=== PATIENT | female | born 1950 | race Caucasian/White ===

== ENCOUNTER → 2018-10-28 | Outpatient (CLI) | payer OTHER ==
--- NOTE | 2018-10-28 11:50 | PCVCIMAG ---
EXAM: RIGHT LOWER EXTREMITY ARTERIAL DUPLEX INDICATION: Peripheral Arterial Disease. Leg pain. FINDINGS: Right Leg: Common femoral artery is patent. 70% stenosis the profunda femoral artery. Occlusion throughout the proximal/mid superficial femoral artery. Popliteal artery is patent. The peroneal artery and posterior tibial arteries are patent. There is occlusion of the mid anterior tibial artery. IMPRESSION: Occlusion throughout the proximal/mid [place] right superficial femoral artery. Occlusion of the mid right anterior tibial artery. LOC:[id number]
== END | disposition home or self-care (01) ==
LOC: PCVCIMAG 11:03
DX: I73.9 Peripheral vascular disease, unspecified (principal); R09.89 Other specified symptoms and signs involving the circulatory and respiratory systems
CPT/HCPCS: 93926

== ENCOUNTER → 2018-11-11 | Outpatient (CLI) | payer OTHER ==
[~2018-11-11] MED LIST: DIAZEPAM 10 MG TABLET. ONE; EPTIFIBATIDE BOLUS 2,000 MCG/ML 10ML VIAL. IV ONE; HEPARIN for SUB-Q USE 5,000 UNIT/ML VIAL. SQ ONE; IODIXANOL 270 MG/ML 100 ML VIAL. ONE; IV NORMAL SALINE 1000ML BAG 1,000 ML ONE; LIDOCAINE 1%/EPI 1:100,000 20 ML VIAL. ONE; MIDAZOLAM HCL/PF 2 MG/2 ML VIAL. ONE; fentaNYL PF VIAL 100 MCG/2 ML VIAL ONE; hydrALAZINE 20 MG/ML VIAL. ONE
--- NOTE | 2018-11-11 17:19 | PCVCINTER ---
EXAM: 1. AORTOGRAM AND RIGHT LOWER EXTREMITY RUNOFF ANGIOGRAM 2. BILATERAL RENAL ANGIOGRAPHY 3. RIGHT SUPERFICIAL FEMORAL ARTERY ATHERECTOMY AND STENT PLACEMENT. 4. SECONDARY THROMBECTOMY RIGHT SUPERFICIAL FEMORAL ARTERY. 5. DRUG COATED BALLOON ANGIOPLASTY RIGHT SUPERFICIAL FEMORAL ARTERY. 6. LEFT COMMON ILIAC ARTERY STENT PLACEMENT. 7. LEFT EXTERNAL ILIAC ARTERY STENT PLACEMENT. INDICATION: Peripheral arterial disease. Coronary artery disease. Nonhealing ulcer right lower extremity. Hypertension. Renal atherosclerosis. Dialysis. No prior catheter based angiographic study is available. A full diagnostic angiogram study is performed today and the decision to intervene is based on this diagnostic study. PROCEDURE: Procedure and risks of angiography intervention is appropriate including limb loss stroke and were discussed with the patient's family and consent obtained. The patient's left groin was prepped in the normal sterile fashion. IV conscious sedation was used throughout procedure with appropriate monitoring from 90. Ultrasound was used to interrogate the left groin and showed the left common femoral artery to be patent. A permanent spot film was obtained. Under ultrasound guidance access into the left common femoral artery was obtained and a 5 [place] sheath was placed. Through this a 5 [place] flush catheter was placed into the abdominal aorta at the level of the renal arteries and AP aortogram was performed. Catheter was positioned at the aortic bifurcation and both oblique views of the pelvis were obtained. Catheter was exchanged for a visceral catheter was placed into the right renal arteries and right renal angiograms obtained. Catheter was placed into the the left renal arteries and left renal angiograms were obtained. Catheter was advanced to the level of the right external iliac artery and right leg runoff angiography was obtained. Patient was given 4000 units of heparin. A 6 [place] crossover sheath was placed via the left groin to the level of the right common femoral artery. Atherectomy of the right superficial femoral artery was performed with 2.0 mm [employer] laser atherectomy catheter in the standard fashion. Following atherectomy small areas of thrombus were observed and because of this secondary thrombectomy throughout the right superficial femoral artery was carried out with mechanical suction thrombectomy catheter in the standard fashion. Minimal debris was removed. Stent placement across the areas of high-grade stenosis in the right superficial femoral artery was carried out with a 6 x 150 and 6 x 120 Smart control stents with subsequent dilatation to 4.0 mm. Following this drug coated balloon angioplasty of the right proximal superficial femoral artery was carried out with a 4 x 120 [employer] Haylee Prateek HOOP BENDER TANK catheter. Stent placement across the areas of high-grade stenosis in the left common iliac artery was carried out with a 8 x 60 Smart control stent with subsequent dilatation to 7.0 mm. Stent placement across the areas of high-grade stenosis in the left external iliac artery was carried out with a 8 mm Smart control stent with subsequent dilatation to 7.0 mm. Follow-up angiogram was performed. Catheters and wires removed. Sheath was removed and hemostasis obtained using the FISH device. No immediate complications. FINDINGS: Aortogram: There is one right and one left renal artery. Mild plaque infrarenal abdominal aorta without significant stenosis. Pelvis: Mild plaque right common iliac artery without significant stenosis. Moderate plaque left common iliac artery causing moderate stenosis. Both internal iliac arteries are patent. Right external iliac artery is patent. Moderate stenosis proximal left external iliac artery. Moderate plaque right common femoral artery without significant stenosis. Right profunda femoral artery is patent. Left common iliac artery is patent as is the left profunda femoral artery. Note is made of occlusion of the visualized portion of the left superficial femoral artery. Probable prior bypass graft left femoral region is occluded. Right renal artery: Mild plaque proximal vessel does not cause significant stenosis. Poor intrarenal flow consistent with patient's chronic renal failure. Left renal artery: Mild plaque proximal vessel does not cause significant stenosis. Poor intrarenal flow consistent with patient's chronic renal failure. Right leg: Long segment occlusion throughout the superficial femoral artery. Profunda collaterals refill the distal superficial femoral artery shows moderate plaque in its distal portion without high-grade stenosis. Popliteal artery is patent. The mid and upper anterior tibial artery is occluded. The peroneal artery and posterior tibial arteries are patent with the posterior tibial artery being dominant and running off into normal sized plantar arteries. Right superficial femoral artery: Following procedure as above vessel shows good patency throughout. Left common iliac artery: Procedure as above vessel shows good patency. Left external iliac artery: Following procedure as above vessel shows good patency. IMPRESSION: Long segment occlusion right superficial femoral artery was treated as above with good patency restored. Moderate stenoses and left common and external iliac arteries were treated with stent placement with good patency restored. Previous left above-knee amputation. LOC:[id number]
== END | disposition home or self-care (01) ==
LOC: PCVCINTER 08:57
PROVIDERS: ATTEND Nuclear Medicine Nuclear Cardiology
DX: I70.202 Unspecified atherosclerosis of native arteries of extremities, left leg (principal); I25.10 Atherosclerotic heart disease of native coronary artery without angina pectoris; I10 Essential (primary) hypertension; I70.1 Atherosclerosis of renal artery; I77.1 Stricture of artery; L97.819 Non-pressure chronic ulcer of other part of right lower leg with unspecified severity; I74.8 Embolism and thrombosis of other arteries; Z99.2 Dependence on renal dialysis
CPT/HCPCS: 36252; 37186; 37221; 37223; 37227; 75716; 76937; C1725; C1751; C1757; C1760; C1769; C1876; C1885; C1887; C1894; C2623; J0360; J0690; J1327; J1644; J2250; J3010; J3490; J7030; Q9967; 99152; 99153

== ENCOUNTER → 2018-11-19 | Outpatient (CLI) | payer OTHER | END | disposition home or self-care (01) | LOC: PCVCCLINIC 09:51 | PROVIDERS: ATTEND Internal Medicine Cardiovascular Disease | DX: I25.10 Atherosclerotic heart disease of native coronary artery without angina pectoris (principal); I42.9 Cardiomyopathy, unspecified; I73.9 Peripheral vascular disease, unspecified; I13.2 Hypertensive heart and chronic kidney disease with heart failure and with stage 5 chronic kidney disease, or end stage renal disease; N18.6 End stage renal disease; I50.9 Heart failure, unspecified; R94.31 Abnormal electrocardiogram [ECG] [EKG]; E78.5 Hyperlipidemia, unspecified; Z87.891 Personal history of nicotine dependence | CPT/HCPCS: 93005; G0463 ==

== ENCOUNTER → 2018-12-23 | Outpatient (CLI) | payer MEDICARE ==
--- NOTE | 2018-12-23 15:21 | PCVCIMAG ---
EXAM: RIGHT LOWER EXTREMITY ARTERIAL DUPLEX INDICATION: Peripheral Arterial Disease. Leg pain. FINDINGS: Right Leg: Common femoral artery is patent. 90% stenosis origin profunda femoral artery. Occlusion throughout the superficial femoral artery within prior stent has developed since prior angiogram. Popliteal artery refills although there are blunted arterial waveforms. The peroneal artery and posterior tibial artery remain patent. There is occlusion throughout the anterior tibial artery which is unchanged. IMPRESSION: Interval occlusion throughout the right superficial femoral artery within prior stent has developed since November 2018. Unchanged occlusion throughout the right anterior tibial artery. LOC:[id number]
== END | disposition home or self-care (01) ==
LOC: PCVCIMAG 13:51
PROVIDERS: ATTEND Nuclear Medicine Nuclear Cardiology
DX: I73.9 Peripheral vascular disease, unspecified (principal); I13.0 Hypertensive heart and chronic kidney disease with heart failure and stage 1 through stage 4 chronic kidney disease, or unspecified chronic kidney disease; I50.9 Heart failure, unspecified; N18.9 Chronic kidney disease, unspecified; I25.10 Atherosclerotic heart disease of native coronary artery without angina pectoris; E78.00 Pure hypercholesterolemia, unspecified; L97.409 Non-pressure chronic ulcer of unspecified heel and midfoot with unspecified severity; E11.9 Type 2 diabetes mellitus without complications; E78.5 Hyperlipidemia, unspecified; Z87.891 Personal history of nicotine dependence; Z79.4 Long term (current) use of insulin
CPT/HCPCS: 93926; G0463